=== PATIENT | female | born 1955 | race African-American/Black ===

== ENCOUNTER → 2021-03-20 | Outpatient (CLI) | payer MEDICARE ==
[2015-07-12 13:40] VITALS: BP 130/79
[~2021-03-20] MED LIST: AMLO-187 PO; ASPI-630 PO; CARV6.2511 PO; FAMO20TA5 PO; HYDR-2145 PO; METF10007 PO; POTA10TA12 PO; SIMV20TA18 PO; SITA100T PO; TRAV5DRO EACHEYE; VALS320T2 PO
--- NOTE | 2021-03-20 11:54 | KCIC ---
EXAM: Right calcaneus, 2 views. HISTORY: Pain. COMPARISON: None. FINDINGS: 2 views of the right calcaneus are obtained. There is a moderate plantar spur. There is sli ght ossification of the plantar fascia. There is enthesopathy at Achilles tendon insertion. There is tibiotalar joint spurring. There is also degenerative spurring involving the midfoot. There is an os trigonum. IMPRESSION: 1. Moderate plantar spur and slight ossification along the plantar fascia. 2. Enthesopathy at Achilles insertion. 3. Moderate ankle and midfoot osteoarthritis. Electronically signed by: Inez Gilmore MD (03/20/2021 11:52 AM) [id number]
== END ==
LOC: KCIC 10:27
PROVIDERS: ATTEND Podiatrist
DX: M19.071 Primary osteoarthritis, right ankle and foot (principal); M77.31 Calcaneal spur, right foot
CPT/HCPCS: 73650